=== PATIENT | female | born 1960 | race Caucasian/White ===

== ENCOUNTER 2020-04-14 13:21 | Inpatient (IN) | payer OTHER ==
[~2020-04-14] VITALS: Ht 157.5 cm; Wt 65.4 kg
[2020-04-14 14:20] LABS: BASOPHIL % 1.1 % (0-2); PLATELET COUNT 226 x10^3mcL (130-400)
[2020-04-14 14:28] LABS: RED CELL DISTRIBUTION WIDTH 15.8 % (11.5-14.5)
[2020-04-14 14:37] LABS: CALCIUM 9.9 mg/dL (8.5-10.1); CARBON DIOXIDE 34.3 mmol/L (21-32); CHLORIDE SERUM 103 mmol/L (98-107); CREATININE SERUM 0.9 mg/dL (0.6-1.0); GFR1 > 60 mL/min; GLUCOSE SERUM 104 mg/dL (74-106); POTASSIUM SERUM 4.1 mmol/L (3.5-5.1); SODIUM SERUM 141 mmol/L (136-145)
[2020-04-14 14:42] LABS: ALBUMIN 3.8 g/dL (3.4-5.0); ALKALINE PHOSPHATASE 114 U/L (46-116); ALT/SGPT 45 U/L (14-59); AST/SGOT 40 U/L (15-37); BILIRUBIN TOTAL 0.9 mg/dL (0.20-1.00); TOTAL PROTEIN, SERUM 7.6 g/dL (6.4-8.2)
[2020-04-14 14:43] LABS: LIPASE 1731 IU/L (73-393)
[2020-04-14 17:22] LABS: CHOLESTEROL/HDL RATIO 4.9; MAGNESIUM 2.3 mg/dL (1.8-2.4); PHOSPHOROUS 4.7 mg/dL (2.5-4.9)
[2020-04-14 17:28] LABS: microscopic required? YES; urine erythrocyte TRACE (NEGATIVE)
[2020-04-14 17:39] VITALS: BP 143/84
[2020-04-14 17:48] VITALS: Ht 157.5 cm; Wt 65.4 kg
[2020-04-14 20:04] VITALS: BP 126/70
[2020-04-15 05:37] VITALS: BP 113/66
[2020-04-15 06:42] LABS: CALCIUM 8.5 mg/dL (8.5-10.1); CARBON DIOXIDE 25.5 mmol/L (21-32); CHLORIDE SERUM 108 mmol/L (98-107); CREATININE SERUM 0.8 mg/dL (0.6-1.0); GFR1 > 60 mL/min; GLUCOSE SERUM 88 mg/dL (74-106); MAGNESIUM 2.1 mg/dL (1.8-2.4); PHOSPHOROUS 3.3 mg/dL (2.5-4.9); POTASSIUM SERUM 3.9 mmol/L (3.5-5.1); SODIUM SERUM 141 mmol/L (136-145)
[2020-04-15 06:47] LABS: BASOPHIL % 0.6 % (0-2); PLATELET COUNT 185 x10^3mcL (130-400)
[2020-04-15 06:48] LABS: BILIRUBIN DIRECT 0.13 mg/dL (0.0-0.2); BILIRUBIN TOTAL 0.44 mg/dL (0.20-1.00); RED CELL DISTRIBUTION WIDTH 15.4 % (11.5-14.5)
[2020-04-15 06:50] LABS: ALBUMIN 2.9 g/dL (3.4-5.0)
[2020-04-15 08:49] VITALS: BP 143/78
[2020-04-15 16:08] VITALS: BP 117/64
[2020-04-15 19:42] VITALS: BP 115/62; BP 134/36
[2020-04-16 05:00] VITALS: BP 157/66
[2020-04-16 07:40] LABS: PLATELET COUNT 186 x10^3mcL (130-400)
[2020-04-16 07:54] LABS: BASOPHIL % 2.6 % (0-2); RED CELL DISTRIBUTION WIDTH 15.3 % (11.5-14.5)
[2020-04-16 07:56] LABS: ALKALINE PHOSPHATASE 122 U/L (46-116); ALT/SGPT 104 U/L (14-59); AST/SGOT 46 U/L (15-37); BILIRUBIN TOTAL 0.29 mg/dL (0.20-1.00); CALCIUM 8.9 mg/dL (8.5-10.1); CARBON DIOXIDE 27.4 mmol/L (21-32); CHLORIDE SERUM 101 mmol/L (98-107); CREATININE SERUM 0.8 mg/dL (0.6-1.0); GFR1 > 60 mL/min; GLUCOSE SERUM 95 mg/dL (74-106); LIPASE 89 IU/L (73-393); MAGNESIUM 1.9 mg/dL (1.8-2.4); POTASSIUM SERUM 3.8 mmol/L (3.5-5.1); SODIUM SERUM 135 mmol/L (136-145); TOTAL PROTEIN, SERUM 6.4 g/dL (6.4-8.2)
[2020-04-16 08:02] LABS: ALBUMIN 3.1 g/dL (3.4-5.0)
[2020-04-16 09:32] VITALS: BP 148/74
[2020-04-16 12:53] VITALS: BP 175/76
[2020-04-16] MEDS ORDERED: LEVAQUIN500 M1 PO (13:04)
[2020-04-16] MEDS ORDERED: NOR7T PO (14:45)
[2020-04-16 14:49] VITALS: BP 175/76
[2020-04-16] MEDS ORDERED: ZESTRIL10 MG PO (14:56)
== END 2020-04-16 15:45 | disposition home or self-care (01) | DRG 263 ==
LOC: ED 13:21 → MU 15:59
PROVIDERS: Emergency Medicine; Surgery; ADMIT Internal Medicine; ATTEND Internal Medicine
PROC: BF131ZZ Fluoroscopy of Gallbladder and Bile Ducts using Low Osmolar Contrast (ICD-10-PCS; 2020-04-15)
PROC: 0FT44ZZ Resection of Gallbladder, Percutaneous Endoscopic Approach (ICD-10-PCS; principal; 2020-04-15 14:15)
DX: K85.90 Acute pancreatitis without necrosis or infection, unspecified (principal); E44.0 Moderate protein-calorie malnutrition; E78.00 Pure hypercholesterolemia, unspecified; Z88.2 Allergy status to sulfonamides; I10 Essential (primary) hypertension; Z88.8 Allergy status to other drugs, medicaments and biological substances; Z91.018 Allergy to other foods; Z83.3 Family history of diabetes mellitus; Z82.3 Family history of stroke; F17.200 Nicotine dependence, unspecified, uncomplicated; E78.5 Hyperlipidemia, unspecified; Z68.26 Body mass index [BMI] 26.0-26.9, adult
CPT/HCPCS: C1887; G0378; J1170; J1956; J2270; J2405; J3490; J7030; Q0092; Q9967